=== PATIENT | male | born 1980 | race African-American/Black ===

== ENCOUNTER 2020-08-06 15:42 | Emergency (ER) | payer OTHER ==
[~2020-08-06] VITALS: Ht 188 cm; Wt 104.3 kg
[2020-08-06 16:38] LABS: AMP/METHAMP Negative (Negative); BARBITURATES Negative (Negative); BENZODIAZEPINES Negative (Negative); COCAINE Negative (Negative); METHADONE Negative (Negative); OPIATES Negative (Negative); PCP Negative (Negative)
[2020-08-06 16:49] LABS: ABSOLUTE NEUTROPHILS 5.3 thou/uL (1.4-8.2); BASOPHILS 1.2 % (0.0-2.0); EOSINOPHILS 0.1 % (0.0-3.0); HEMATOCRIT 40.7 % (42.0-52.0); HEMOGLOBIN 13.1 gm/dL (14.0-18.0); LYMPHOCYTES 15.7 % (24.0-44.0); MCH 23.5 pg (26.0-34.0); MCHC 32.1 g/dL (28.0-37.0); MCV 73.2 fL (80.0-100.0); MONOCYTES 5.7 % (1.0-8.0); PLATELET COUNT 207 thou/uL (150-400); POLYS 77.3 % (36.0-66.0); RBC 5.57 mil/uL (4.50-6.00); RDW 14.7 % (10.5-14.5); WBC 6.8 thou/uL (4.0-11.0)
[2020-08-06 17:02] LABS: ANION GAP 14 mmol/L (7-16); BUN 17 mg/dL (7-18); CALCIUM 9.1 mg/dL (8.5-10.1); CHLORIDE 103 mmol/L (98-107); CO2 20 mmol/L (21-32); CREATININE 0.9 mg/dL (0.7-1.3); GLUCOSE 110 mg/dL (74-106); POTASSIUM 3.4 mmol/L (3.5-5.1); SODIUM 137 mmol/L (136-145)
[2020-08-06 17:12] LABS: ALBUMIN 4.1 g/dL (3.4-5.0); LIPASE 480 U/L (73-393); SGOT 22 U/L (15-37); SGPT 28 U/L (30-65); TOTAL BILIRUBIN 0.6 mg/dL (0.2-1.0); TROPONIN-I <0.06 ng/mL (<0.06)
[2020-08-06 17:15] LABS: HYPOCHROMASIA 1+; MICROCYTES 1+
[2020-08-06] MEDS ORDERED: ONDANSETRON HCL4 M2 PO (18:49)
[2020-08-06] MEDS ORDERED: BENTYL 20 MG TA20 M1 PO (18:49)
[2020-08-06 19:15] VITALS: BP 183/100
--- NOTE | 2020-08-07 07:36 | EKG ---
[facility] [address] [place] [address] ELECTROCARDIOGRAM REPORT Name: BIGG YU Room #: DEP [facility]#: [id number] Admission: 08/06/20 Attend Phys: Discharge: 08/06/20 Date of : 78 Report #: [id number] THIS REPORT FOR: cc: EDMUND - Mayuri family physician/PCP EDMUND - Mayuri family physician/PCP Blake Hodge MD [facility] ~ THIS REPORT FOR: //name// [facility] ED Test Date: 2020-08-06 Test Time: 16:54:49 Pat Name: BIGG YU Department: Room: Gender: Customer Success Associate: [facility] : 1980 Requested By: Josef Green Order Number: [id number] MD: Blake Hodge Measurements Intervals [place] Rate: 69 P: 50 DC: 200 QRS: 23 QRSD: 100 T: 45 QT: 425 QTc: 456 Interpretive Statements Sinus rhythm J-Point elev, probable normal early repol pattern Baseline wander in lead(s) V1 No previous ECG available for comparison Electronically Signed On 08-07-2020 7:36:01 CDT by Blake Hodge [email or web address] <ELECTRONICALLY SIGNED> By: Blake Hodge MD, FACC 08/07/20 0736 [id number] [id number] Blake Hodge MD, [facility] /EPI
== END 2020-08-06 19:22 | disposition home or self-care (01) ==
LOC: ER 15:42 → EDBD 15:42 → ER 19:22
PROVIDERS: Nurse Practitioner
DX: R10.9 Unspecified abdominal pain (principal); R11.2 Nausea with vomiting, unspecified; R41.82 Altered mental status, unspecified

== ENCOUNTER 2020-08-09 09:44 | Emergency (ER) | payer OTHER ==
[~2020-08-09] VITALS: Ht 188 cm; Wt 108.9 kg
[~2020-08-09 09:44] MED LIST: BENTYL 20 MG TA20 M1 PO; ONDANSETRON HCL4 M2 PO
[2020-08-09 10:27] LABS: HEMATOCRIT 44.4 % (42.0-52.0); HEMOGLOBIN 14.6 gm/dL (14.0-18.0); MCH 23.7 pg (26.0-34.0); MCHC 32.9 g/dL (28.0-37.0); MCV 72.2 fL (80.0-100.0); PLATELET COUNT 212 thou/uL (150-400); RBC 6.15 mil/uL (4.50-6.00); RDW 14.3 % (10.5-14.5)
[2020-08-09 10:39] LABS: CALCIUM 9.2 mg/dL (8.5-10.1); CREATININE 1.2 mg/dL (0.7-1.3); POTASSIUM 3.2 mmol/L (3.5-5.1)
[2020-08-09 10:43] LABS: ALBUMIN 4.4 g/dL (3.4-5.0); TOTAL BILIRUBIN 1.3 mg/dL (0.2-1.0); TOTAL PROTEIN 8.6 g/dL (6.4-8.2)
[2020-08-09 10:44] LABS: ABSOLUTE NEUTROPHILS 4.2 thou/uL (1.4-8.2); ATYPICAL LYMPHS 2 %
[2020-08-09 10:45] LABS: ANISOCYTOSIS SLIGHT; HYPOCHROMASIA 1+; MICROCYTES 1+; PLATELET ESTIMATE NORMAL
[2020-08-09 11:06] LABS: URINE BILIRUBIN NEGATIVE (Negative); URINE BLOOD TRACE (Negative); URINE CLARITY SL CLOUDY; URINE COLOR YELLOW; URINE GLUCOSE-RANDOM* NEGATIVE (Negative); URINE KETONES NEGATIVE (Negative); URINE LEUKOCYTES-REFLEX NEGATIVE (Negative); URINE NITRITE-REFLEX NEGATIVE (Negative); URINE PROTEIN (DIPSTICK) TRACE (Negative); URINE SPECIFIC GRAVITY 1.025 (1.005-1.035); URINE UROBILINOGEN 0.2 E.U./dl (0.2-1.0)
[2020-08-09] MEDS ORDERED: NAPROSYN500 MG PO (12:49)
[2020-08-09 12:55] VITALS: BP 123/71
== END 2020-08-09 12:55 | disposition home or self-care (01) ==
LOC: ER 09:44
PROVIDERS: Emergency Medicine
DX: R10.84 Generalized abdominal pain (principal); Z79.899 Other long term (current) drug therapy